=== PATIENT | male | born 1995 | race Caucasian/White ===

== ENCOUNTER 2018-01-07 13:34 | Emergency (ER) | payer BC ==
--- NOTE | 2018-01-07 14:11 | EDM.PDOC ---
ED HPI GENERAL MEDICAL PROBLEM - General Chief Complaint: ENT Problem Stated Complaint: SINUS INFECTION Time Seen by Provider: 01/07/18 14:08 Source of Information: Reports: Patient History Limitations: Reports: No Limitations - History of Present Illness INITIAL COMMENTS - FREE TEXT/NARRATIVE: HISTORY AND PHYSICAL: History of present illness: Patient is a 22-year-old female here with complaint of sinus pain/pressure x 2 days. He states he's had nasal congestion, left ear pain, sore throat. He denies any fevers, chills, cough, nausea, vomiting, diarrhea. He is taking zyrtec and motrin with some relief. Review of systems: As per history of present illness and below otherwise all systems reviewed and negative. Past medical history: As per history of present illness and as reviewed below otherwise noncontributory. Surgical history: As per history of present illness and as reviewed below otherwise noncontributory. Social history: No reported history of drug or alcohol abuse. Family history: As per history of present illness and as reviewed below otherwise noncontributory. Physical exam: General: Patient sitting comfortably in no acute distress and nontoxic appearing HEENT: Tender to palpation of maxillary sinuses bilaterally. Atraumatic, normocephalic, pupils reactive, negative for conjunctival pallor or scleral icterus, mucous membranes moist, throat clear, neck supple, nontender, trachea midline. No meningeal signs. Lungs: Clear to auscultation, breath sounds equal bilaterally, chest nontender. Heart: S1S2, regular, negative for clicks, rubs, or overt murmur. Abdomen: Soft, nondistended, nontender. Negative for masses or hepatosplenomegaly. Negative for costovertebral tenderness. Pelvis: Stable nontender. Genitourinary: Deferred. Rectal: Deferred. Extremities: Atraumatic, negative for cords or calf pain. Neurovascular unremarkable. Neuro: Awake, alert, oriented. Cranial nerves II through XII unremarkable. Cerebellum unremarkable. Motor and sensory unremarkable throughout. Exam nonfocal. Notes: Diagnostics: None Therapeutics: None Prescriptions: Augmentin Impression: Acute sinusitis Plan: 1. Take antibiotic as directed. Use flonase and decongestants as instructed 2. Follow up with primary care provider 3. Return to ED as needed as discussed Definitive disposition and diagnosis as appropriate pending reevaluation and review of above. sinus headache Pain Score (Numeric/FACES): 8 - Related Data Allergies Allergy/AdvReac Type Severity Reaction Status Date / Time No Known Allergies Allergy Verified 01/07/18 13:51 Home Meds: Home Meds Amoxicillin/Potassium Clav [Augmentin 875-125 Tablet] 1 each PO BID 14 Days #7 tablet 01/07/18 [Rx] Levothyroxine [Synthroid] 50 mcg PO ACBREAKFAST 01/07/18 [History] Omeprazole 20 mg PO DAILY 01/07/18 [History] Sertraline [Zoloft] 100 mg PO DAILY 01/07/18 [History] traZODone HCl [Trazodone HCl] 50 mg PO BEDTIME 01/07/18 [History] Past Medical History Psychiatric History: Reports: ADHD, Depression Endocrine/Metabolic History: Reports: Hypothyroidism - Infectious Disease History Infectious Disease History: Reports: None - Past Surgical History HEENT Surgical History: Reports: Naso-Sinus Surgery Musculoskeletal Surgical History: Reports: Shoulder Surgery Social & Family History - Family History Family Medical History: Noncontributory - Tobacco Use Smoking Status *Q: Never Smoker - Caffeine Use Caffeine Use: Reports: Soda - Alcohol Use Days Per Week of Alcohol Use: 1 Number of Drinks Per Day: 2 Total Drinks Per Week: 2 - Recreational Drug Use Recreational Drug Use: No ED ROS ENT - Review of Systems Review Of Systems: ROS reveals no pertinent complaints other than HPI. ED EXAM, ENT - Physical Exam Exam: See Below (see dictation) Course - Vital Signs Last Recorded V/S: Last Vital Signs Temp 37.0 C 01/07/18 13:52 Pulse 93 01/07/18 13:52 Resp 20 01/07/18 13:52 BP 134/76 01/07/18 13:52 Pulse Ox 98 01/07/18 13:52 Departure - Departure Time of Disposition: 14:11 Disposition: Home, Self-Care 01 Condition: Good Clinical Impression: Sinusitis, acute - Discharge Information Prescriptions: Amoxicillin/Potassium Clav [Augmentin 875-125 Tablet] 1 each PO BID 14 Days #7 tablet Referrals: PCP,None [Primary Care Provider] - Additional Instructions: The following information is given to patients seen in the emergency department who are being discharged to home. This information is to outline your options for follow-up care. We provide all patients seen in our emergency department with a follow-up referral. The need for follow-up, as well as the timing and circumstances, are variable depending upon the specifics of your emergency department visit. If you don't have a primary care physician on staff, we will provide you with a referral. We always advise you to contact your personal physician following an emergency department visit to inform them of the circumstance of the visit and for follow-up with them and/or the need for any referrals to a consulting specialist. The emergency department will also refer you to a specialist when appropriate. This referral assures that you have the opportunity for follow-up care with a specialist. All of these measure are taken in an effort to provide you with optimal care, which includes your follow-up. Under all circumstances we always encourage you to contact your private physician who remains a resource for coordinating your care. When calling for follow-up care, please make the office aware that this follow-up is from your recent emergency room visit. If for any reason you are refused follow-up, please contact the [facility] Emergency Department at and asked to speak to the emergency department charge nurse. 1. Take antibiotic as directed. Use flonase and decongestants as instructed 2. Follow up with primary care provider 3. Return to ED as needed as discussed
== END 2018-01-07 14:15 | disposition home or self-care (01) ==
LOC: MW.ED 13:34
DX: J01.90 Acute sinusitis, unspecified (principal); F32.9 Major depressive disorder, single episode, unspecified; E03.9 Hypothyroidism, unspecified; Z79.899 Other long term (current) drug therapy
CPT/HCPCS: 99283